=== PATIENT | male | born 1975 | race American Indian/Alaskan Native ===

== ENCOUNTER 2020-11-27 18:05 | Emergency (ER) | payer OTHER ==
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
[2020-11-27 20:02] VITALS: BP 153/83
== END 2020-11-27 21:10 | disposition home or self-care (01) ==
LOC: ED 18:05
DX: R03.0 Elevated blood-pressure reading, without diagnosis of hypertension (principal); Z79.899 Other long term (current) drug therapy; V49.49XA Driver injured in collision with other motor vehicles in traffic accident, initial encounter; Y92.410 Unspecified street and highway as the place of occurrence of the external cause; Y93.89 Activity, other specified; Y99.8 Other external cause status
CPT/HCPCS: 99282